=== PATIENT | female | born 1930 | race Caucasian/White ===

== ENCOUNTER 2019-12-05 08:31 | Outpatient (CLI) | payer MEDICARE ==
[~2019-12-05 08:31] MED LIST: REGADENOSON 0.4 MG/5 ML SYRINGE ONE
[2019-12-14] MEDS ORDERED: BIOT1TAB2 PO (09:21)
[2019-12-14] MEDS ORDERED: ASPI-496 PO (09:21)
[2019-12-14] MEDS ORDERED: CHOL10003 PO (09:21)
[2019-12-14] MEDS ORDERED: LOSA100T14 PO (09:21)
[2019-12-14] MEDS ORDERED: GLIM2TAB7 PO (09:21)
[2019-12-14] MEDS ORDERED: CARV6.2512 PO (09:21)
[2019-12-14] MEDS ORDERED: MULT-750 PO (09:21)
[2019-12-14] MEDS ORDERED: AMLO10TA8 PO (09:21)
[2019-12-14] MEDS ORDERED: SIMV5TAB14 PO (09:21)
[2019-12-14] MEDS ORDERED: ALBU18HF INH (09:22)
[2019-12-14] MEDS ORDERED: CALC1CAP8 PO (09:22)
== END 2019-12-05 23:59 | disposition home or self-care (01) ==
LOC: CFH 08:31
PROVIDERS: ATTEND Internal Medicine Cardiovascular Disease
DX: I25.2 Old myocardial infarction (principal)
CPT/HCPCS: 78452; 93017; A9502; J2785

== ENCOUNTER 2019-12-14 10:00 | Outpatient (CLI) | payer MEDICARE ==
[2019-12-14 10:39] LABS: CALCIUM 9.2 mg/dL (8.5-10.1)
[2019-12-14 10:50] LABS: FREE T4 (FREE THYROXINE) 1.43 ng/dL (0.76-1.46)
== END 2019-12-14 23:59 | disposition home or self-care (01) ==
LOC: LAB 10:00
PROVIDERS: ATTEND Family Medicine
DX: I10 Essential (primary) hypertension (principal); E21.3 Hyperparathyroidism, unspecified; E05.90 Thyrotoxicosis, unspecified without thyrotoxic crisis or storm
CPT/HCPCS: 36415; 82310; 83970; 84439; 84443

== ENCOUNTER → 2019-12-14 | Outpatient (CLI) | payer MEDICARE ==
[~2019-12-14] MED LIST changes: +ALBU18HF INH; +AMLO10TA8 PO; +ASPI-496 PO; +BIOT1TAB2 PO; +CALC1CAP8 PO; +CARV6.2512 PO; +CHOL10003 PO; +GLIM2TAB3 PO; +LOSA100T14 PO; +MULT-750 PO; -REGADENOSON 0.4 MG/5 ML SYRINGE ONE; +SIMV5TAB14 PO
[2019-12-14 10:26] LABS: BASOPHILS # (AUTO) 0.03 x10^3/uL (0-0.1); BASOPHILS % (AUTO) 0 % (0-1); EOSINOPHILS # (AUTO) 0.25 x10^3/uL (0-0.4); EOSINOPHILS % (AUTO) 4 % (1-7); LYMPHOCYTES # (AUTO) 1.48 x10^3/uL (1-3.4); LYMPHOCYTES % (AUTO) 21 % (22-44); MD NO; MEAN CORPUSCULAR HGB CONC 32.6 g/dL (32.4-35.8); MEAN CORPUSCULAR VOLUME 88.7 fL (80-100); MEAN PLATELET VOLUME 8.1 fL (7.4-10.4); MONOCYTES # (AUTO) 0.66 x10^3/uL (0.2-0.8); MONOCYTES % (AUTO) 9 % (2-9); NEUTROPHILS # (AUTO) 4.82 x10^3/uL (1.8-6.8); NEUTROPHILS % (AUTO) 67 % (42-75); PLATELET COUNT 320 x10^3/uL (130-400); RED BLOOD COUNT 4.53 x10^6/uL (3.82-5.3); RED CELL DISTRIBUTION WIDTH 14.3 % (9.6-15.2)
[2019-12-14 10:35] LABS: INTERNATIONAL NORMALIZED RATIO 1.06 (0.93-1.1); PROTHROMBIN TIME 11.2 Seconds (9.6-11.5)
[2019-12-14 10:38] LABS: ALANINE AMINOTRANSFERASE 21 U/L (12-78); ALBUMIN 3.5 g/dL (3.4-5.0); ANION GAP 7 mmol/L (5-15); CALCIUM 9.2 mg/dL (8.5-10.1); CHLORIDE 110 mmol/L (98-107); CREATININE 1.44 mg/dL (0.55-1.02)
[2019-12-14 10:41] LABS: ALKALINE PHOSPHATASE 104 U/L (45-117); BILIRUBIN,TOTAL 0.6 mg/dL (0.2-1.0); TOTAL PROTEIN 7.5 g/dL (6.4-8.2)
== END | disposition home or self-care (01) ==
LOC: STAR 08:43
PROVIDERS: ATTEND Orthopaedic Surgery
DX: Z01.818 Encounter for other preprocedural examination (principal); I51.7 Cardiomegaly
CPT/HCPCS: 36415; 80053; 83036; 85025; 85610; 85730; 87081; 87806; 93005; G0475

== ENCOUNTER 2019-12-25 07:30 | Inpatient (IN) | payer MEDICARE ==
[~2019-12-25] VITALS: Ht 170.2 cm; Wt 92.7 kg
[2019-12-25] MEDS ORDERED: KETOROLAC 60 MG/2 ML ONE ×2 (07:50→12:33)
[2019-12-25] MEDS ORDERED: EPINEPHRINE 1 MG/ML, 1ML ONE ×2 (07:51→12:33)
[2019-12-25] MEDS ORDERED: SODIUM CHLORIDE 0.9% 0 ML ONE (07:51)
[2019-12-25] MEDS ORDERED: ROPIvacaine/PF 0.2%, 20 ML ONE ×2 (07:51→13:50)
[2019-12-25] MEDS ORDERED: VANCOMYCIN 1,000 MG ONE (07:51)
[2019-12-25] MEDS ORDERED: LACTATED RINGERS 1,000 ML IV SCH (10:09)
[2019-12-25] MEDS ORDERED: GABAPENTIN 300 MG CAPSULE PO ONE (10:30)
[2019-12-25] MEDS ORDERED: ACETAMINOPHEN 500 MG TABLET PO ONE (10:30)
[2019-12-25] MEDS ORDERED: TRANEXAMIC ACID 100 MG/ML, 10ML ONE (12:33)
[2019-12-25] MEDS ORDERED: ROPivacaine/PF 0.2%, 10 ML ONE (12:37)
[2019-12-25] MEDS ORDERED: LIDOCAINE-MPF 2% ,5ML ONE (13:02)
[2019-12-25] MEDS ORDERED: FENTANYL PF 250 MCG/5ML ONE (13:03)
[2019-12-25] MEDS ORDERED: OXYcodone 5 MG/5 ML ORAL.SOL UDC PO PRN (13:30)
[2019-12-25] MEDS ORDERED: FENTANYL PF 100 MCG/2ML IV PRN (13:30)
[2019-12-25] MEDS ORDERED: LABETALOL 5MG/ML, 20ML IV PRN (13:30)
[2019-12-25] MEDS ORDERED: ONDANSETRON 2MG/ML, 2ML IV PRN (13:30)
[2019-12-25] MEDS ORDERED: hydrALAzine 20 MG/ML, 1ML IV PRN (13:30)
[2019-12-25] MEDS ORDERED: HYDROmorphone 2 MG/ML, 1ML IVPush PRN (13:30)
[2019-12-25] MEDS ORDERED: PROMETHAZINE 25 MG SUPP PR PRN (13:30)
[2019-12-25] MEDS ORDERED: PROMETHAZINE 25 MG/ML, 1ML IV PRN (13:30)
[2019-12-25] MEDS ORDERED: ONDANSETRON ODT 8 MG PO PRN (13:30)
[2019-12-25] MEDS ORDERED: GLYCOPYRROLATE 0.2MG/1ML, 5ML ONE (13:53)
[2019-12-25] MEDS ORDERED: ROCURONIUM 10MG/ML,5ML ONE (13:53)
[2019-12-25] MEDS ORDERED: PROPOFOL 10 MG/ML, 20ML ONE (13:53)
[2019-12-25] MEDS ORDERED: EPHEDRINE 50 MG/ML, 1ML ONE ×2 (13:53)
[2019-12-25] MEDS ORDERED: DEXAMETHASONE 4 MG/ML, 1ML ONE (13:53)
[2019-12-25] MEDS ORDERED: CEFAZOLIN 1,000 MG ONE (13:53)
[2019-12-25] MEDS ORDERED: NEOSTIGMINE 1 MG/ML, 10ML ONE (13:53)
[2019-12-25] MEDS ORDERED: ONDANSETRON 2MG/ML, 2ML ONE (13:53)
[2019-12-25] MEDS ORDERED: SUCCINYLCHOLINE 20 MG/ML, 10ML ONE (13:53)
[2019-12-25] MEDS ORDERED: DIPHENHYDRAMINE 50 MG CAPSULE PO PRN (16:30)
[2019-12-25] MEDS ORDERED: HYDROmorphone 1 MG/ML, 1ML INJ IVPush PRN (16:30)
[2019-12-25] MEDS ORDERED: TRANEXAMIC ACID 1,000 MG in SODIUM CHLORIDE 0.9% 100 ML IVPB ONE (16:30)
[2019-12-25] MEDS ORDERED: SENNA/DOCUSATE TABLET PO PRN (16:30)
[2019-12-25] MEDS ORDERED: METOCLOPRAMIDE 5 MG/ML, 2ML IVPush PRN (16:30)
[2019-12-25] MEDS ORDERED: SCOPOLAMINE 1MG PATCH TD SCH (16:30)
[2019-12-25] MEDS ORDERED: DIPHENHYDRAMINE 50 MG/ML, 1ML IVPush PRN (16:30)
[2019-12-25] MEDS ORDERED: PSYLLIUM PACKET PO PRN (16:30)
[2019-12-25] MEDS ORDERED: OXYcodone IR 5MG TABLET PO PRN (16:30)
[2019-12-25] MEDS ORDERED: BISACODYL 10 MG SUPP PR PRN (16:30)
[2019-12-25] MEDS ORDERED: ONDANSETRON 2MG/ML, 2ML IVPush PRN (16:30)
[2019-12-25] MEDS ORDERED: ONDANSETRON 4 MG TABLET PO PRN (16:30)
[2019-12-25] MEDS ORDERED: PROMETHAZINE 25 MG/ML, 1ML IM PRN (16:30)
[2019-12-25] MEDS ORDERED: MAGNESIUM HYDROXIDE 8%, 30ML UDC PO PRN (16:30)
[2019-12-25] MEDS ORDERED: ALUMINUM/MAG/SIMETHICONE 30 ML UDC PO PRN (16:30)
[2019-12-25] MEDS ORDERED: ALBUTEROL SULFATE 2.5 MG/3 ML NPPB PRN (18:00)
[2019-12-25] MEDS: CARVEDILOL 6.25 MG TABLET PO SCH (18:13)
[2019-12-25] MEDS: ACETAMINOPHEN 325 MG TABLET PO SCH ×2 (18:13→22:50)
[2019-12-25] MEDS: POTASSIUM CHLORIDE 20 MEQ in D5%-0.45% NACL 1,000 ML IV SCH (18:14)
[2019-12-25 19:45] VITALS: BP 121/63
[2019-12-25] MEDS ORDERED: VANCOMYCIN PMX 1GM/200ML 200 ML IVPB ONE (20:00)
[2019-12-25] MEDS: DOCUSATE 100 MG CAPSULE PO SCH (21:03)
[2019-12-25] MEDS: AMLODIPINE 10 MG TAB PO SCH (21:03)
[2019-12-25] MEDS: SIMVASTATIN 5 MG TABLET PO SCH (21:03)
[2019-12-25] MEDS: CEFAZOLIN PMX 1GM/50ML 50 ML IVPB SCH (22:50)
[2019-12-26 00:04] VITALS: BP 123/64
[2019-12-26] MEDS: POTASSIUM CHLORIDE 20 MEQ in D5%-0.45% NACL 1,000 ML IV SCH ×3 (02:13→22:25)
[2019-12-26] MEDS: ACETAMINOPHEN 325 MG TABLET PO SCH ×5 (02:15→18:11)
[2019-12-26 04:16] VITALS: BP 95/50
[2019-12-26] MEDS: ASPIRIN 81 MG TABLET EC PO SCH ×2 (05:55→18:10)
[2019-12-26] MEDS: CARVEDILOL 6.25 MG TABLET PO SCH ×2 (05:55→18:11)
[2019-12-26] MEDS ORDERED: DEXAMETHASONE 4 MG/ML, 1ML IVPush ONE (06:00)
[2019-12-26 06:46] VITALS: BP 132/80
[2019-12-26] MEDS: CEFAZOLIN PMX 1GM/50ML 50 ML IVPB SCH (07:27)
[2019-12-26] MEDS: GLIMEPIRIDE 1 MG TABLET PO SCH (07:27)
[2019-12-26] MEDS: LOSARTAN 100 MG TAB PO SCH (07:28)
[2019-12-26] MEDS: TAMSULOSIN 0.4 MG CAP.ER.24H PO SCH (07:28)
[2019-12-26] MEDS: DOCUSATE 100 MG CAPSULE PO SCH ×2 (07:28→20:27)
[2019-12-26 14:19] VITALS: BP 132/75
[2019-12-26] MEDS ORDERED: METOCLOPRAMIDE 5 MG/ML, 2ML IVPush PRN (16:02)
[2019-12-26 18:10] VITALS: BP 132/75
[2019-12-26 19:48] VITALS: BP 145/69
[2019-12-26] MEDS: AMLODIPINE 10 MG TAB PO SCH (20:26)
[2019-12-26] MEDS: SIMVASTATIN 5 MG TABLET PO SCH (20:27)
[2019-12-27] MEDS: ACETAMINOPHEN 325 MG TABLET PO SCH ×4 (01:55→12:10)
[2019-12-27 02:23] VITALS: BP 134/71
[2019-12-27] MEDS: CARVEDILOL 6.25 MG TABLET PO SCH (06:43)
[2019-12-27] MEDS: ASPIRIN 81 MG TABLET EC PO SCH (06:43)
[2019-12-27 06:52] VITALS: BP 155/76
[2019-12-27] MEDS: POTASSIUM CHLORIDE 20 MEQ in D5%-0.45% NACL 1,000 ML IV SCH (08:38)
[2019-12-27] MEDS: DOCUSATE 100 MG CAPSULE PO SCH (08:39)
[2019-12-27] MEDS: TAMSULOSIN 0.4 MG CAP.ER.24H PO SCH (08:39)
[2019-12-27] MEDS: GLIMEPIRIDE 1 MG TABLET PO SCH (08:39)
[2019-12-27] MEDS: LOSARTAN 100 MG TAB PO SCH (08:41)
[2019-12-27 13:30] VITALS: BP 134/70
== END 2019-12-27 13:46 | disposition home health service (06) | DRG 467 ==
LOC: EDSTATUS 07:30 → ORIP 09:55 → 4NE 17:40 → DCLOUNGE 12-27 13:33
PROVIDERS: ADMIT Orthopaedic Surgery; ATTEND Orthopaedic Surgery
PROC: 0SPC0JZ Removal of Synthetic Substitute from Right Knee Joint, Open Approach (ICD-10-PCS; 2019-12-25)
PROC: 0SRC0J9 Replacement of Right Knee Joint with Synthetic Substitute, Cemented, Open Approach (ICD-10-PCS; 2019-12-25)
PROC: 3E0T3BZ Introduction of Anesthetic Agent into Peripheral Nerves and Plexi, Percutaneous Approach (ICD-10-PCS; 2019-12-25)
PROC: 0QSB04Z Reposition Right Lower Femur with Internal Fixation Device, Open Approach (ICD-10-PCS; principal; 2019-12-25 12:45)
DX: T84.032A Mechanical loosening of internal right knee prosthetic joint, initial encounter (principal); S72.421A Displaced fracture of lateral condyle of right femur, initial encounter for closed fracture; T84.052A Periprosthetic osteolysis of internal prosthetic right knee joint, initial encounter; M97.11XA Periprosthetic fracture around internal prosthetic right knee joint, initial encounter; Y79.2 Prosthetic and other implants, materials and accessory orthopedic devices associated with adverse incidents; E11.9 Type 2 diabetes mellitus without complications; I10 Essential (primary) hypertension; I25.2 Old myocardial infarction; Z79.84 Long term (current) use of oral hypoglycemic drugs; Y92.89 Other specified places as the place of occurrence of the external cause
CPT/HCPCS: 36415; 82962; 85014; 85018; C1713; G0378; J0171; J0690; J1100; J1885; J2405; J2704; J2710; J2795; J3010; J3370; J3480; C1776; J0330; J7120